=== PATIENT | male | born 1990 | race Caucasian/White ===

== ENCOUNTER 2020-07-25 18:00 | Emergency (ER) | payer OTHER, SELFPAY ==
[2020-07-25 18:12] VITALS: BP 140/83; PULSE 55; RESP 14; TEMP 36.4; O2SAT 99
[2020-07-25 19:34] VITALS: BP 132/89; PULSE 64; RESP 16; TEMP 36.8; O2SAT 100
--- NOTE | 2020-07-25 19:35 | PC.NURSE ---
Pt states he recently got a tetanus shot a few months ago when he split his toe open
--- NOTE | 2020-07-25 20:44 | ED.WOUNDLAC ---
HPI - Wound/Laceration <CARLOS Singer - Last Filed: 07/25/20 20:49> General Chief Complaint: Wound/Laceration Stated Complaint: LEFT WRIST LACERATION Time Seen by Provider: 07/25/20 19:28 Source: patient and family Mode of arrival: Ambulatory Limitations: no limitations History of Present Illness HPI narrative: The patient is a 29-year-old male nonsmoker presents with his for chief complaint of a laceration to his wrist. He was working at home, and dropped a piece of metal in his left wrist which made a cut on the lateral aspect. He states his tetanus is up-to-date the past 2-3 years. He denies any decreased range of motion. He washed it with water. The patient is at home on paternity leave as he and his just had a son a week ago. Related Data Previous Rx's Medication Instructions Recorded cyclobenzaprine 10 mg PO Q8HP PRN #20 tab 06/15/17 Allergies Allergy/AdvReac Type Severity Reaction Status Date / Time codeine [CODEINE] Allergy Unknown Verified 07/25/20 19:36 nickel [NICKEL] Allergy Unknown Verified 07/25/20 19:36 Review of Systems <CARLOS Singer - Last Filed: 07/25/20 20:49> Review of Systems Narrative: GENERAL: Denies chills, fatigue, malaise, fever, sweats. HEENT: Denies sinus pain, ear pain, sore throat, difficulty swallowing, dizziness. RESPIRATORY: Denies dyspnea, cough, wheezing, hemoptysis, sputum. CARDIOVASCULAR: Denies chest pain, palpitations, orthopnea, edema, GASTROINTESTINAL: Denies nausea, vomiting, abdominal pain, diarrhea, constipation, melena. : Denies dysuria, frequency, incontinence, hematuria, urinary retention. MUSCULOSKELETAL: denies weakness, joint pain, or bony pain SKIN: See HPI NEUROLOGIC: Denies weakness, headache, numbness, change in speech, confusion, seizures, incoordination. PSYCHIATRIC: No concerning psychosocial issues. 12 point review of systems is negative except for those stated above Exam <CARLOS Singer - Last Filed: 07/25/20 20:49> Narrative Exam Narrative: GENERAL: This is a well-nourished, well-developed patient, in no acute distress HEAD: Atraumatic. Normocephalic. No temporal or scalp tenderness. EYES: Pupils equal round and reactive. Extraocular motions intact. No scleral icterus. No injection or drainage. ENT: Nose without bleeding, purulent drainage or septal hematoma. Wearing a mask. Airway patent. NECK: Trachea midline. No JVD or lymphadenopathy. Supple, nontender, no meningeal signs. CARDIOVASCULAR: Regular rate and rhythm RESPIRATORY: No cough. No increased respiratory effort. No accessory muscle use. EXTREMITIES: Left wrist with full range of motion, able to flex extend pronate supinate left forearm. Capillary refill less than 2 seconds all fingers left wrist. Positive left radial pulse. Skin exam as noted. Sensation intact throughout. BACK: Nontender without deformity or crepitance. No flank tenderness. NEURO: AOx3. SKIN: 1 cm linear laceration to lateral aspect of left wrist. Not full thickness, does not go through dermis. No obvious muscle or tendon involvement. Well-approximated Initial Vital Signs Initial Vital Signs: Vital Signs Temperature 97.6 F 07/25/20 18:12 Pulse Rate 55 L 07/25/20 18:12 Respiratory Rate 14 07/25/20 18:12 Blood Pressure 140/83 07/25/20 18:12 Pulse Oximetry 99 07/25/20 18:12 <Jose Araiza DO - Last Filed: 07/26/20 01:56> Initial Vital Signs Initial Vital Signs: Vital Signs Temperature 97.6 F 07/25/20 18:12 Pulse Rate 55 L 07/25/20 18:12 Respiratory Rate 14 07/25/20 18:12 Blood Pressure 140/83 07/25/20 18:12 Pulse Oximetry 99 07/25/20 18:12 Scores <JESS Singer - Last Filed: 07/25/20 20:49> GCS Sonu coma scale eye opening: Spontaneous [place] coma scale verbal response: Orientated Sonu coma scale motor response: Obey commands Sonu coma scale total score: 15 Course <JESS Singer - Last Filed: 07/25/20 20:49> Vital Signs Vital signs: Vital Signs - 8 hr 07/25/20 18:12 07/25/20 19:34 Temperature 97.6 F 98.3 F Pulse Rate 55 L 64 Respiratory Rate 14 16 Blood Pressure 140/83 132/89 Pulse Oximetry 99 100 <Jose Araiza DO - Last Filed: 07/26/20 01:56> Vital Signs Vital signs: Vital Signs - 8 hr 07/25/20 18:12 07/25/20 19:34 Temperature 97.6 F 98.3 F Pulse Rate 55 L 64 Respiratory Rate 14 16 Blood Pressure 140/83 132/89 Pulse Oximetry 99 100 MDM - Wound/Laceration <SHANE Singer-BC - Last Filed: 07/25/20 20:49> MDM Narrative Medical decision making narrative: The patient is a 29-year-old male with recent tetanus vaccination who presents with a chief complaint of a laceration by piece of metal. I did offer to suture his wound, or temp Steri-Strips. Patient elected use Steri-Strips given that he is ?taking it easy and has a at home. Nursing cleansed and closed laceration with Steri-Strips. I encouraged him to follow up with primary care provider, watch for signs and symptoms of infection and not submerge is hands to dirty water. Patient states understanding and has no questions or concerns upon discharge. Given that he has full range of motion, not significant pain and the laceration was minor, held off on x-ray at this point time especially given that no concern for foreign body. Patient and have no questions or concerns upon discharge and states understanding return precautions as well as follow-up care. Discharge Plan Departure Patient Disposition: Home Clinical Impression: Laceration Discharge Date/Time: 07/25/20 20:30 Instructions: How to Care for a Laceration After Repair, DI for Laceration Repair-Skin Closure Strips, DI for Minor Laceration Activity Restrictions/Additional Instructions: Thank you for trusting us with your care today As discussed, please follow-up with primary care provider next few days. I have given contact information the [facility] health enterprise resource planning consultant in case you needed a new one. Please monitor for signs and symptoms of infection. Keep your wound clean and dry. Please come back to the emergency department for any acute concerns. Prescriptions: No Action cyclobenzaprine 10 MG tablet 10 mg PO Q8HP PRNQty: 20 RF: 0 Referrals: [facility] [Outside] Ayde Christopher MD [Primary Care Provider] - <Jose Araiza DO - Last Filed: 07/26/20 01:56> Cosign ED Attending Cosignature Attestation: I was immediately available in the department for consultation. This documentation has been reviewed and I agree with assessment and plan. Supervised by Jose Araiza DO
== END 2020-07-25 20:30 | disposition home or self-care (01) ==
PROVIDERS: Emergency Provider Nurse Practitioner Family; PCP Family Medicine
DX: S61.512A Laceration without foreign body of left wrist, initial encounter (principal); W45.8XXA Other foreign body or object entering through skin, initial encounter
CPT/HCPCS: 99281; 99283

== ENCOUNTER 2020-08-04 20:16 | Emergency (ER) | payer OTHER, SELFPAY ==
[2020-08-04 20:25] VITALS: BP 143/92; PULSE 77; RESP 14; TEMP 37; O2SAT 95; BMI 25.8
--- NOTE | 2020-08-04 20:38 | ED.GENADULT ---
HPI - General Adult General Chief complaint: Dental/Oral Stated complaint: dental pain Time Seen by Provider: 08/04/20 20:34 Source: patient Mode of arrival: Ambulatory Limitations: no limitations History of Present Illness HPI narrative: Who has a known apical infection of the tooth in his right upper jaw here for evaluation of continued pain. Patient states that earlier today he saw a dentist and was diagnosed with the apical infection. Was not given any medications. Was instructed that he needed to ?see specialist ?he has an appointment with a another individual in the next several days however he comes the emergency department for continued pain. Related Data Previous Rx's Medication Instructions Recorded cyclobenzaprine 10 mg PO Q8HP PRN #20 tab 06/15/17 penicillin V potassium 500 mg PO QID 7 Days #28 tab 08/04/20 Allergies Allergy/AdvReac Type Severity Reaction Status Date / Time codeine [CODEINE] Allergy Unknown Verified 08/04/20 20:28 nickel [NICKEL] Allergy Unknown Verified 08/04/20 20:28 Review of Systems Constitutional Constitutional: Denies fever(s) ENT Ears, Nose, Mouth, and Throat: Reports dental pain, Denies dysphagia, Denies otalgia, Denies sore throat, Denies throat swelling and Denies tongue swelling Cardiovascular Cardiovascular: Denies dyspnea Respiratory Respiratory: Denies cough and Denies dyspnea Gastrointestinal Gastrointestinal: Denies dysphagia Integumentary/Breasts Skin/Breast: Denies rash Neurologic Neurologic: Denies behavioral changes Psychiatric Psychiatric: Denies behavioral changes Hematologic/Lymphatic Hematologic/Lymphatic: Denies easy bleeding and Denies easy bruising Allergic/Immunologic Allergic/Immunologic: Denies throat swelling and Denies tongue swelling Patient History Medical History Laceration (Inactive) Neck muscle strain (Inactive) Strain of lumbar spine (Inactive) Social History Smoking Status: Unknown if ever smoked Smoking Status: Unknown if ever smoked alcohol intake frequency: holidays/special occasions only Substance Use Type: does not use Exam Initial Vital Signs Initial Vital Signs: Vital Signs Temperature 98.6 F 08/04/20 20:25 Pulse Rate 77 08/04/20 20:25 Respiratory Rate 14 08/04/20 20:25 Blood Pressure 143/92 H 08/04/20 20:25 Pulse Oximetry 95 10/29/20 20:25 Const General: cooperative and comfortable Limitations: mental status not altered HENMT Head: normal to inspection and normocephalic Nose: external nose normal Mouth: oral mucosae normal Teeth and gingiva: dentition normal, gingiva normal, no caries and no dentures Throat: posterior oropharynx normal Resp Effort & Inspection: normal respiratory effort Course Orders Ordered: Discontinued Medications Penicillin V Potassium (Veetids) 500 mg PO NOW ONE Stop: 08/04/20 20:39 Last Admin: 08/04/20 20:56 Dose: 500 mg Documented by: GEO Tramadol HCl (Ultram 50mg Prepack) 1 bottle MISC SEEINSTR ONE Stop: 08/04/20 20:41 Last Admin: 08/04/20 20:56 Dose: 1 bottle Documented by: GEO Vital Signs Vital signs: Vital Signs - 8 hr 08/04/20 20:25 Temperature 98.6 F Pulse Rate 77 Respiratory Rate 14 Blood Pressure 143/92 H Pulse Oximetry 95 Medical Decision Making MDM Narrative Medical decision making narrative: No problems swallowing or breathing. No drainable abscess seen on his exam. Was diagnosed with an abscess earlier today by dental. Given the fact that he is here in the emergency department with continued pain will start him on antibiotics and he was given his 1st dose here in the emergency department. Also sent home with a short course of pain medication. He is given return precautions and follow-up instructions. He expressed understanding and agreement with plan. Discharge Plan Departure Patient Disposition: Home Clinical Impression: Dental abscess Discharge Date/Time: 08/04/20 20:59 Instructions: DI for Dental Pain Activity Restrictions/Additional Instructions: Keep all of your scheduled dental appointments. Take the medications as directed. Return to the emergency department for any new or worsening symptoms Prescriptions: New penicillin V potassium 500 mg tablet 500 mg PO QID 7 Days Qty: 28 RF: 0 No Action cyclobenzaprine 10 MG tablet 10 mg PO Q8HP PRNQty: 20 RF: 0 Referrals: Ayde Christopher MD [Primary Care Provider] -
[2020-08-04] MEDS: TRAMADOL 50 MG PREPACK 1 BOTTLE MISC (20:56)
[2020-08-04] MEDS: PENICILLIN VK 250 MG TABLET 500 MG PO (20:56)
== END 2020-08-04 20:59 | disposition home or self-care (01) ==
PROVIDERS: Emergency Provider Emergency Medicine; PCP Family Medicine
DX: K04.7 Periapical abscess without sinus (principal)
CPT/HCPCS: 99283

== ENCOUNTER 2020-08-06 01:45 | Emergency (ER) | payer OTHER, SELFPAY ==
[2020-08-06 01:53] VITALS: BP 155/101; PULSE 86; RESP 16; TEMP 37.5; O2SAT 96
--- NOTE | 2020-08-06 02:01 | ED.GENADULT ---
HPI - General Adult General Chief complaint: Dental/Oral Stated complaint: Possible allergic reaction to medication Time Seen by Provider: 08/06/20 01:50 Source: patient Mode of arrival: Ambulatory Limitations: no limitations History of Present Illness HPI narrative: Patient is a 29-year-old male who evaluated in the emergency department approximately 24 hours ago after he was diagnosed with a right upper tooth abscess from a x-ray by his dentist. At that time he was not given any medication by his dentist and was told that he need to follow up with a ?specialist? he has an appointment with this specialist on Saturday of next week. After my evaluation I did start him on penicillin. He has taken approximately 1 day's worth of this medication. Also send him home with tramadol. He states over the past 12 hours he has noticed increasing pain and swelling to the right side of his face. He is also having some drainage from the right side of his nose. No problems breathing. No problem swallowing. Came in because he thought he was potentially have an allergic reaction to his medicines. Related Data Previous Rx's Medication Instructions Recorded cyclobenzaprine 10 mg PO Q8HP PRN #20 tab 06/15/17 penicillin V potassium 500 mg PO QID 7 Days #28 tab 08/04/20 clindamycin HCl 300 mg PO QID 7 Days #28 cap 08/06/20 Allergies Allergy/AdvReac Type Severity Reaction Status Date / Time codeine [CODEINE] Allergy Unknown Verified 08/04/20 20:28 nickel [NICKEL] Allergy Unknown Verified 08/04/20 20:28 Review of Systems Constitutional Constitutional: Denies fever(s) and Reports headache(s) ENT Ears, Nose, Mouth, and Throat: Reports dental pain, Reports headache(s) and Reports mouth pain Comments: Swelling on the right side of his face Cardiovascular Cardiovascular: Denies chest pain and Denies dyspnea Respiratory Respiratory: Denies dyspnea Gastrointestinal Gastrointestinal: Denies abdominal pain Integumentary/Breasts Comments: Redness right-sided face Neurologic Neurologic: Denies behavioral changes and Reports headache(s) Psychiatric Psychiatric: Denies behavioral changes Hematologic/Lymphatic Hematologic/Lymphatic: Denies easy bleeding and Denies easy bruising Patient History Medical History Laceration (Inactive) Neck muscle strain (Inactive) Strain of lumbar spine (Inactive) Social History Smoking Status: Unknown if ever smoked Smoking Status: Unknown if ever smoked alcohol intake frequency: holidays/special occasions only Substance Use Type: does not use Exam Initial Vital Signs Initial Vital Signs: Vital Signs Temperature 99.5 F 08/06/20 01:53 Pulse Rate 86 08/06/20 01:53 Respiratory Rate 16 08/06/20 01:53 Blood Pressure 155/101 H 08/06/20 01:53 Pulse Oximetry 96 08/06/20 01:53 Const General: cooperative and comfortable Limitations: mental status not altered HENMT Head: normal to inspection and normocephalic Ears: hearing grossly normal bilaterally Nose: external nose normal Face and sinus: face asymmetric, erythema on the right maxilla and sinus tenderness maxillary Mouth: oral mucosae normal Teeth and gingiva: dentition normal Neck Lymphatic: No lymphadenopathy Resp Effort & Inspection: normal respiratory effort Skin Other: Redness and swelling right cheek area Extrem General: capillary refill normal Psych Appearance: grossly normal and well kempt Course Orders Ordered: ED Orders 08/06/20 02:03 CT facial bones w con Stat 08/06/20 02:10 Basic Metabolic Panel Stat Complete Blood Count AUTO DIFF Stat Tramadol HCl (Ultram 50mg Prepack) 1 bottle MISC SEEINSTR ONE Stop: 08/06/20 03:45 Discontinued Medications Clindamycin Phosphate (Cleocin) 900 mg in 50 mls @ 50 mls/hr IV NOW ONE Stop: 08/06/20 03:00 Last Admin: 08/06/20 02:15 Dose: 50 mls/hr Documented by: [email or web address] Ketorolac Tromethamine (Toradol) 30 mg IV NOW ONE Stop: 08/06/20 03:44 Vital Signs Vital signs: Vital Signs - 8 hr 08/06/20 01:53 Temperature 99.5 F Pulse Rate 86 Respiratory Rate 16 Blood Pressure 155/101 H Pulse Oximetry 96 Medical Decision Making Lab Data Lab results reviewed: Yes I reviewed the patient's lab results. Result diagrams: 08/06/20 02:10 08/06/20 02:10 Labs: Lab Results 08/06/20 08/06/20 Range/Units 02:10 02:10 WBC 11.0 (4.5-11.0) X10^3/uL RBC 4.97 (4.5-5.9) X10^6/uL Hgb 14.9 (13.5-17.5) g/dL Hct 43.4 (41-53) % MCV 87.4 (80-100) fL MCH 30.0 (26-34) PG MCHC 34.4 (30-36) % RDW 12.9 (11.6-14.8) % Plt Count 232 (150-400) X10^3/uL Neut % (Auto) 64.8 (50-75) % Lymph % (Auto) 22.5 L (25-40) % [place] % (Auto) 11.9 (3-14) % Eos % (Auto) 0.4 L (2-4) % Baso % (Auto) 0.4 (0-2) % Neut # (Auto) 7100 H (9063-0318) /uL Lymph # (Auto) 2500 (3445-7648) /uL [place] # (Auto) 1300 H (0-900) /uL Eos # (Auto) 0 (0-450) /uL Baso # (Auto) 0 (0-100) /uL Sodium 138 (137-145) mmol/L Potassium 3.7 (3.4-5.1) mmol/L Chloride 103 (98-107) mmol/L Carbon Dioxide 31 (22-32) mmol/L BUN 10 (9-20) mg/dL Creatinine 0.84 (0.66-1.25) mg/dL Estimated GFR > 60.0 (>60) mL/min BUN/Creatinine Ratio 11.9 (6-22) Glucose 120 H (70-100) mg/dL Calcium 9.8 (8.4-10.2) mg/dL Imaging Data CT face: Radiologist's Impression: Right anterior lateral facial cellulitis. No abscess seen. Acute on chronic right maxillary sinusitis MDM Narrative Medical decision making narrative: Patient does have significant swelling to the right side of his face which was not there during my evaluation of him 24 hours. He has had approximately 1 day's worth of penicillin however despite this the infection the right side his face has significantly worsened. There is no drainable abscess seen on his exam and his dentition is relatively unremarkable. CT scan of his face was ordered which showed right anterior lateral facial cellulitis without any abscess. Patient was given dose of IV clindamycin here in the ER. I feel that despite being on 1 day's worth of the penicillin hit obviously has not kept the infection from worsening so feel switching him to another antibiotic is warranted. He does have an appointment already scheduled next week with a dental specialist to discuss his dental issues. He was given return precautions. He expressed understanding and agreement. Discharge Plan Departure Patient Disposition: Home Clinical Impression: Dental abscess, Cellulitis of face Instructions: DI for Cellulitis -- Adult Activity Restrictions/Additional Instructions: Stock taking the penicillin, which was the antibiotic that you are prescribed yesterday, had start taking the new antibiotic you were prescribed today. You can take the pain medicine as needed and as directed. Tylenol and ibuprofen are also appropriate and can be very helpful for dental pain. Also recommend that you keep your appointment with your dental specialist next week. Return to the emergency department for any new or worsening symptoms Prescriptions: New clindamycin HCl 300 mg capsule 300 mg PO QID 7 Days Qty: 28 RF: 0 No Action cyclobenzaprine 10 MG tablet 10 mg PO Q8HP PRNQty: 20 RF: 0 penicillin V potassium 500 mg tablet 500 mg PO QID 7 Days Qty: 28 RF: 0 Referrals: Ayde Christopher MD [Primary Care Provider] -
--- NOTE | 2020-08-06 02:03 | DI.CT.S_ITS ---
PROCEDURE: CT FACIAL BONES W CON INDICATIONS: Right-sided dental abscess TECHNIQUE: After the administration of intravenous contrast, 2.5 mm axial sections acquired from the mid-neck to the frontal sinuses, with coronal and sagittal reformats. For radiation dose reduction, the following was used: automated exposure control, adjustment of mA and/or kV according to patient size. COMPARISON: None. FINDINGS: Image quality: Excellent. Soft tissues: Generalized thickening and inflammatory change can be seen within the soft tissues of the right cheek and perimandibular region. No findings of a soft tissue abscess can be seen. Vascular: Visualized vascular structures appear patent throughout. Bony vascular foramina and canals appear normal. Bones: Periapical lucency can be seen adjacent to a right maxillary molar, as on series 8, image 46. Facial bones appear intact, without fractures, erosions, or destruction. Visualized portions of the skull base and auditory canals also appear normal. Sinuses: Moderate mucosal thickening is seen within the right maxillary sinus Paranasal sinuses are otherwise normally aerated without fluid levels, mucosal thickening, or mucoceles. Mastoid air cells are aerated. Mild rightward nasal septal deviation. . IMPRESSION: Prominent right-sided facial swelling, without a soft tissue abscess identified. Periapical lucency can be seen involving a right maxillary molar, which may be the cause of this patient's infection in this patient with this given history. There is moderate mucosal thickening seen within the right maxillary sinus. Note: No significant discrepancy from the preliminary report. Dictated by: Reggie Trejo M.D. on 08/06/2020 at 7:34 Approved by: Reggie Trejo M.D. on 08/06/2020 at 7:38
[2020-08-06] MEDS: CLINDAMYCIN 900 MG/50 ML PIGGYBACK 50 MG IV (02:15)
[2020-08-06 02:19] LABS: Add Manual Diff / Slide Review NO; Basophils Absolute Auto 0 /uL (0-100); Basophils Percent Auto 0.4 % (0-2); Eosinophils Absolute Auto 0 /uL (0-450); Eosinophils Percent Auto 0.4 % (2-4); Hematocrit 43.4 % (41-53); Hemoglobin 14.9 g/dL (13.5-17.5); Lymphocytes Absolute Auto 2500 /uL (1100-4500); Lymphocytes Percent Auto 22.5 % (25-40); Mean Corpuscular HGB Conc 34.4 % (30-36); Mean Corpuscular Volume 87.4 fL (80-100); Monocytes Absolute Auto 1300 /uL (0-900); Monocytes Percent Auto 11.9 % (3-14); Neutrophils Absolute Auto 7100 /uL (1500-7000); Neutrophils Percent Auto 64.8 % (50-75); Platelet Count 232 X10^3/uL (150-400); Red Blood Cell Count 4.97 X10^6/uL (4.5-5.9); Red Cell Distribution Width 12.9 % (11.6-14.8)
[2020-08-06 02:26] LABS: BUN Creatinine Ratio 11.9 (6-22); Blood Urea Nitrogen 10 mg/dL (9-20); Calcium 9.8 mg/dL (8.4-10.2); Carbon Dioxide 31 mmol/L (22-32); Chloride 103 mmol/L (98-107); Estimated Glomerular Filt Rate > 60.0 mL/min (>60); Glucose 120 mg/dL (70-100); HEMOLYSIS < 15 (0-50); Potassium 3.7 mmol/L (3.4-5.1); Sodium 138 mmol/L (137-145)
[2020-08-06] MEDS: TRAMADOL 50 MG PREPACK 1 BOTTLE MISC (03:50)
[2020-08-06] MEDS: KETOROLAC 60 MG/2 ML VIAL 30 MG IV (03:52)
[2020-08-06 04:06] VITALS: BP 146/90; PULSE 82; RESP 16; TEMP 37.5; O2SAT 98
== END 2020-08-06 04:07 | disposition home or self-care (01) ==
PROVIDERS: Emergency Provider Emergency Medicine; PCP Family Medicine
DX: K04.7 Periapical abscess without sinus (principal); L03.211 Cellulitis of face; R51.9 Headache, unspecified
CPT/HCPCS: 36415; 70487; 80048; 85025; 96365; 96375; 99284; J1885; Q9967